=== PATIENT | female | born 1990 | race Caucasian/White ===

== ENCOUNTER 2019-10-06 09:28 | Observation (INO) | payer BC ==
[2019-10-06] MEDS ORDERED: Ondansetron ODT 4 MG TAB ONE (09:58)
[2019-10-06 10:00] LABS: #Lymphocytes 0.7 thou/uL (1.20-3.40); #Monocytes 0.3 thou/uL (0.11-0.59); #Neutrophils 8.9 thou/uL (1.40-6.50); %Basophils 0.1 % (0.0-1.0); %Eosinophils 0.2 % (0.0-10.0); %Lymphocytes 7.5 % (21.0-51.0); %Neutrophils 89.3 % (42.0-75.0); Hemoglobin 14.9 g/dL (12.0-16.0); Mean Corpuscular HGB CONC 34.8 g/dL (32.0-36.0); Mean Corpuscular Hemoglobin 32.4 pg (27.0-31.0); Mean Corpuscular Volume 93.1 fL (78.0-98.0); Mean Platelet Volume 8.9 fL (7.4-10.4); Platelet Count 253 thou/uL (130-400); RBC Distribution Width 11.5 % (11.5-14.5); Red Blood Cell (RBC) Count 4.59 mill/uL (4.20-5.40); White Blood Cell (WBC) Count 9.9 thou/uL (4.8-10.8)
[2019-10-06 10:16] LABS: ALT (SGPT) 19 U/L (8-55); AST (SGOT) 22 U/L (5-34); Albumin 4.9 g/dL (3.5-5.0); Alkaline Phosphatase 57 U/L (40-110); Anion Gap 15 mmol/L (10-20); BUN (Urea Nitrogen) 13 mg/dL (7.0-18.7); Bilirubin, Total 1.2 mg/dL (0.2-1.2); Calc. Creatinine Clearance 0 mL/min (70-130); Calcium 9.6 mg/dL (7.8-10.44); Carbon Dioxide 21 mmol/L (22-29); Chloride 106 mmol/L (98-107); Estimated GFR-MDRD 87; Globulin 3.1 g/dL (2.4-3.5); Glucose 131 mg/dL (70-105); Lipase 44 U/L (8-78); Potassium 3.4 mmol/L (3.5-5.1); Sodium 139 mmol/L (136-145)
[2019-10-06] MEDS ORDERED: Morphine 4 MG/ML VIAL ONE (10:31)
[2019-10-06] MEDS ORDERED: Ondansetron PF 4 MG/2 ML Vial ONE (10:31)
[2019-10-06 11:06] LABS: BHCG - Serum Negative (NEGATIVE); Pregs Control Background? CLEAR/WHITE (CLR/WHITE); Pregs Control Bar Appear? YES (CONTROL BAR)
[2019-10-06 11:53] LABS: Bacteria/HPF None Seen HPF (None Seen); Bilirubin Negative (Negative); Blood, Urine 2+ (Negative); Clarity Clear (Clear); Glucose, Urine (Dipstick) Normal (Negative); Leukocyte Negative Leu/uL (Negative); Nitrite Negative (Negative); Pregnancy Test - Urine (BHCG) Negative (Negative); Pregu Control Background? CLEAR/WHITE (CLR/WHITE); Pregu Control Bar Appear? YES (CONTROL BAR); Protein, Urine (Dipstick) 70 mg/dL (Neg-Trace); Specific Gravity 1.031 (1.002-1.036); Squamous Epithelial 0-3 HPF (0-3); WBC/HPF 0-3 HPF (0-3)
--- NOTE | 2019-10-06 11:55 | CT ---
EXAM: CT Abdomen Pelvis W Con PROVIDED CLINICAL HISTORY: Abdominal pain COMPARISON: 09/02/2012 FINDINGS: The visualized lung bases are free of significant opacity. The liver, spleen, pancreas, kidneys and adrenal glands demonstrate no significant abnormality. There is no bowel dilatation, inflammatory fat stranding, free fluid or free air apparent. There is a 1.5 cm calcification present in the right hemipelvis, present on prior and presumably reflecting adnexal calcification possibly on the basis of a dermoid. The regional major vascular structures appear unremarkable. The osseous structures demonstrate no concerning lytic or blastic lesions. IMPRESSION: No definite evidence for an acute process.
--- NOTE | 2019-10-06 13:04 | ULT ---
Exam: Pelvic ultrasound including Transabdominal, And Vascular Duplex with color and spectral Doppler imag ing: HISTORY: Abdominal and pelvic pain COMPARISON: None FINDINGS: The uterus is 7.3 x 3.2 x 4.9 cm Endometrial thickness:0.5 cm Right ovary:Nonvisualized Left ovary:2.4 x 2.6 x 3.1 cm No abscess or significant abnormal fluid collection. Vascular duplex examination demonstrates no evidence for ovarian torsion IMPRESSION: Somewhat limited exam because of bowel gas. No abscess or abnormal fluid collection or other acute pr ocess.
[2019-10-06] MEDS ORDERED: Pantoprazole 40 MG VIAL ONE (14:07)
--- NOTE | 2019-10-06 14:24 | HP ---
PRIMARY CARE PHYSICIAN: Kimmy Ceron. CHIEF COMPLAINT: Nausea and vomiting. HISTORY OF PRESENT ILLNESS: This is a 29-year-old white female with a past medical history of previous H. pylori as well as ovarian cysts, who occasionally gets nauseated at night and vomits about once per month, who presented with mom, intractable nausea and vomiting since last night. The patient was in her normal state of health until about 10 last night when she started having persistent nausea and vomiting with abdominal cramps. This eased off for about 3 or 4 hours overnight when she slept some, but then came back on early this morning. The patient has vomited greater than 20 times. No mack blood noticed in the vomit. Abdominal pain was diffuse and crampy in nature. She also had a little bit of left lower abdominal pain that has been going on for about 4 days since her dog stepped on her, but seems to be a little bit different than the pain that was associated with nausea and vomiting. She denies any diarrhea. She is currently on her menstrual period, but has never had severe symptoms like this with her menstrual period. The patient was seen in the emergency room. She was given IV Zofran, IV morphine, IV fluids, and IV Protonix and is now feeling much better just with the left abdominal pain from her dog stepping on her remaining. She has not been able to tolerate anything by mouth yet. The patient was noted to have an elevated lactic acid in the emergency room, negative test, and so she is being observed in the hospital to see if she can start taking p.o. and if that lactic acidosis resolves. The patient does report that she has been under a little bit of stress from her work. REVIEW OF SYSTEMS: CONSTITUTIONAL: No fevers. No chills. EYES: No double vision or blurred vision. ENT: No congestion, drainage, or sore throat. CARDIOVASCULAR: No chest pain. No palpitations or racing heart. PULMONARY: No coughing, wheezing, or shortness of breath. GASTROINTESTINAL: See HPI. GENITOURINARY: No dysuria or hematuria. She is currently on her menstrual period and it is about normal flow. MUSCULOSKELETAL: She has some chronic muscular complaint in her left calf that has been going on for years. No new musculoskeletal complaints. SKIN: No rashes or lesions she has noticed. NEUROLOGIC: No numbness, tingling, or focal weakness. PAST MEDICAL HISTORY: 1. Previous ovarian cyst. 2. Absent right ovary since . 3. Previous H. pylori, eradicated. PAST SURGICAL HISTORY: Ovarian cyst removal about 10 years ago. SOCIAL HISTORY: No tobacco, alcohol, or illicit drug use. FAMILY HISTORY: Father side with some hyperlipidemia and possible heart disease when they are older. ALLERGIES: BACTRIM CAUSED HIVES. CURRENT MEDICATIONS: None. She has been off control for the last 6 months. PHYSICAL EXAMINATION: VITAL SIGNS: Blood pressure 110/83, pulse 85, respirations 18, temperature 98.3 , O2 saturation 98% on room air. GENERAL: This is a well-developed, well-nourished white female, in no acute distress. HEENT: Pupils are equal, round, and reactive to light. Oropharynx clear without lesions, erythema, or exudate. NECK: Supple. No lymphadenopathy. No thyroid nodules or enlargement. HEART: Regular rate and rhythm. No murmurs, rubs, or gallops. LUNGS: Clear to auscultation bilaterally. No wheezes, crackles, or rhonchi. ABDOMEN: Soft. Minimal tenderness to palpation suprapubically and to the left of the umbilicus without guarding or rebound tenderness. No hepatosplenomegaly. No masses. She does have some mildly decreased bowel sounds. EXTREMITIES: No clubbing, cyanosis, or edema. SKIN: No rashes or lesions noted. NEUROLOGIC: Intact strength and sensation in all extremities. No facial droop. PSYCHIATRIC: Alert and oriented x3. Normal mood and affect. LABORATORY DATA: CBC is grossly within normal limits. Complete metabolic panel is notable for a potassium of 3.4, carbon dioxide of 21, and a glucose of 131. The rest is normal. Serum and urine tests are negative. Lactic acid was 3.4. Recheck is still not back. Urinalysis shows ketones 2+ in blood with 4-6 RBCs, but no white blood cells, no bacteria. IMAGING STUDIES: CT of the abdomen and pelvis with contrast shows no definitive evidence for an acute process, just a 1.5 cm calcification in the right julien pelvis. Pelvic ultrasound shows a nonvisualized right ovary. The rest of the exam was normal. ASSESSMENT AND PLAN: 1. Intractable nausea and vomiting. This may be related to food poisoning versus gastritis versus stress versus recurrence of her H. pylori. The patient seems to be much improved after treatment in the emergency room. I will have them start giving her some ice chips and advance her diet as tolerated. We will also recheck that lactic acid to make sure it is resolved. 2. Lactic acidosis, likely secondary to intractable nausea and vomiting. 3. Hypokalemia. We will put potassium in her fluids around D5 half-normal saline with 20 of K at 75 mL/h until she is taking good oral intake. 4. Gastrointestinal prophylaxis. We will put the patient on Pepcid IV twice a day. 5. Deep venous thrombosis prophylaxis. We will have the patient ambulate frequently. CODE STATUS: The patient is a full code. Her medical decision maker will be her mother, Aminha So. Job ID: [id number] MTDD
[2019-10-06] MEDS ORDERED: Iopamidol-370 76% 500 ML 1 ML ONE (14:35)
[2019-10-06] MEDS ORDERED: D5 1/2 NS w/20 mEq KCL 1,000 ML IV SCH (14:45)
[2019-10-06] MEDS ORDERED: Ondansetron ODT 4 MG TAB SL PRN (15:02)
[2019-10-06] MEDS ORDERED: Ondansetron PF 4 MG/2 ML Vial IVP PRN ×2 (15:02→15:18)
[2019-10-06] MEDS ORDERED: Sodium Chloride 0.9% 1,000 ML IV SCH (15:02)
[2019-10-06] MEDS ORDERED: Ketorolac Tromethamine 30 MG/ML VIAL IVP PRN (15:03)
[2019-10-06] MEDS ORDERED: Acetaminophen 650 MG Suppository PR PRN (15:18)
[2019-10-06] MEDS ORDERED: Acetaminophen 325 MG TAB PO PRN (15:18)
[2019-10-06] MEDS ORDERED: Senokot S 8.6-50 MG TAB PO PRN (15:18)
[2019-10-06] MEDS ORDERED: Ondansetron ODT 4 MG TAB PO PRN (15:18)
[2019-10-06] MEDS ORDERED: Guaifenesin DM 100-10/5 ML UDCUP PO PRN (15:18)
[2019-10-06] MEDS: D5 1/2 NS w/20 mEq KCL 1,000 ML IV SCH (16:18)
[2019-10-06 18:18] VITALS: BMI 19.0
[2019-10-06] MEDS: Famotidine/PF 20 mg/2ml Vial SLOW IVP SCH (20:05)
[2019-10-07] MEDS: D5 1/2 NS w/20 mEq KCL 1,000 ML IV SCH (04:32)
[2019-10-07 06:01] LABS: Hemoglobin 11.9 g/dL (12.0-16.0); Mean Corpuscular HGB CONC 34.9 g/dL (32.0-36.0); Mean Corpuscular Hemoglobin 32.8 pg (27.0-31.0); Mean Corpuscular Volume 94.1 fL (78.0-98.0); Platelet Count 184 thou/uL (130-400); RBC Distribution Width 11.6 % (11.5-14.5); Red Blood Cell (RBC) Count 3.63 mill/uL (4.20-5.40); White Blood Cell (WBC) Count 3.8 thou/uL (4.8-10.8)
[2019-10-07 06:20] LABS: Band 1 % (5-11); Lymphocytes 42 % (21-51); MDiff Complete? YES; Monocytes 19 % (0-10); Neutrophil 38 % (42-75)
[2019-10-07 06:28] LABS: Anion Gap 9 mmol/L (10-20); BUN (Urea Nitrogen) 8 mg/dL (7.0-18.7); Calc. Creatinine Clearance 100 mL/min (70-130); Calcium 8.1 mg/dL (7.8-10.44); Carbon Dioxide 22 mmol/L (22-29); Chloride 109 mmol/L (98-107); Estimated GFR-MDRD Greater than 90; Glucose 97 mg/dL (70-105); Potassium 3.5 mmol/L (3.5-5.1); Sodium 136 mmol/L (136-145)
[2019-10-07] MEDS: Famotidine/PF 20 mg/2ml Vial SLOW IVP SCH (08:06)
[2019-10-07 16:19] VITALS: BP 113/74; TEMP 98.6
--- NOTE | 2019-10-08 14:15 | DIS ---
DATE OF ADMISSION: 10/06/2019 DATE OF DISCHARGE: 10/07/2019 DISCHARGE DIAGNOSES: 1. Nausea and vomiting. 2. Lactic acidosis. 3. Likely acute viral gastroenteritis. HISTORY OF PRESENT ILLNESS: This patient is a 29-year-old female, who has a history of H pylori and a history of some ovarian cyst, who frequently has some nausea related issues around the time of her menstrual cycle, who developed a fairly significant onset of nausea and vomiting with multiple episodes and some mild generalized abdominal pain other than an area on the left, where she was sore from where her dog had jumped on her. The patient's initial workup included a CT abdomen and pelvis, which was negative and a pelvic ultrasound, which was also negative. She had some lactic acidosis, otherwise chemistries were largely unremarkable. Her white blood cell count was normal at 9.9. HOSPITAL COURSE: The patient was admitted to the hospital, started on IV fluids, p.r.n. antiemetics, and by the following morning, she had white count down to 3.8. Her symptoms had resolved. She had no further nausea. No abdominal pain. She was able to take in some clear liquids and then some full liquids, which she tolerated well. She was ambulating and eager to go home. Her vital signs were stable. Her exam is otherwise unremarkable. DISPOSITION: The patient is discharged to home. ACTIVITY: As tolerated. DIET: She has no dietary restrictions. No medications given and she is to follow up with PCP. She inquired about following up with a auto body repairer [employer], which is likely not necessary at this juncture. However, she has recurrent symptoms may be a consideration going forward. However, PCP should be established. Job ID: [id number]
--- NOTE | 2019-10-11 14:49 | EKG ---
Test Reason : SEPSIS Blood Pressure : / mmHG Vent. Rate : 111 BPM Atrial Rate : 111 BPM P-R Int : 126 ms QRS Dur : 086 ms QT Int : 352 ms P-R-T Axes : 044 078 -26 degrees QTc Int : 478 ms Sinus tachycardia with Premature supraventricular complexes Abnormal ECG Confirmed by NEIL BATISTA ([id number]), writer editor MARA DUNCAN ([id number]) on 10/11/2019 2:48:54 PM Referred By: Confirmed By:NEIL BATISTA
== END 2019-10-07 17:40 | disposition home or self-care (01) ==
LOC: ERS 09:28 → T4-A 12:35
PROVIDERS: ADMIT Emergency Medicine; ATTEND Emergency Medicine
DX: R11.2 Nausea with vomiting, unspecified (principal); E87.2 Acidosis; E87.6 Hypokalemia; R10.84 Generalized abdominal pain; Q50.01 Congenital absence of ovary, unilateral; Z88.2 Allergy status to sulfonamides
CPT/HCPCS: 36415; 74177; 76856; 80048; 80053; 81003; 81015; 81025; 83605; 83690; 84703; 85025; 87040; 93005; 93976; 96361; 96374; 96375; 96376; C9113; G0378; J2270; J2405; J3480; J7042; Q0162; Q9967; S0028